=== PATIENT | female | born 1980 | race Caucasian/White ===

== ENCOUNTER 2017-12-09 13:29 | Emergency (ER) | payer BC, OTHER ==
[2017-12-09 14:22] VITALS: BP 130/57
[2017-12-09] MEDS ORDERED: Ibuprofen TAB* 600 MG PO ONE (14:23)
--- NOTE | 2017-12-09 16:07 | UC ---
FLU HPI - HPI Summary HPI Summary: 2 dAYS OF COUGH, BODY ACHES, FEVERS, FATIGUE - History of Current Complaint Chief Complaint: UCRespiratory Stated Complaint: CHEST CONGESTION, COUGH Time Seen by Provider: 12/09/17 16:02 Hx Obtained From: Patient Hx Last Menstrual Period: Mid Nov 2017 ?: No Onset/Duration: Sudden Onset, Lasting Days - 2, Still Present Severity Currently: Moderate Severity Initially: Moderate Pain Intensity: 10 Associated Signs & Symptoms: Positive: Fever, Myalgia, Cough, Sore Throat, Nasal Congestion, Headache Related Hx: Possible Flu/Infectious Exposure - Allergy/Home Medications Allergies/Adverse Reactions: Allergies Allergy/AdvReac Type Severity Reaction Status Date / Time No Known Allergies Allergy Verified 12/09/17 14:11 Home Medications: Home Medications Montelukast Sodium TAB* [Singulair 10 MG TAB*] 10 mg PO DAILY 12/09/17 [History Confirmed 12/09/17] Sertraline* [Zoloft*] 200 mg PO BEDTIME 12/09/17 [History Confirmed 12/09/17] buPROPion SR TAB* [Wellbutrin SR TAB*] 150 mg QAM 12/09/17 [History Confirmed ] celeCOXIB CAP* [Celebrex CAP*] 200 mg BEDTIME 12/09/17 [History Confirmed ] traZODone TAB* [Desyrel TAB*] 100 mg BEDTIME 12/09/17 [History Confirmed ] PMH/Surg Hx/FS Hx/Imm Hx Previously Healthy: No Psychological History: Depression - Surgical History Surgical History: Yes Surgery Procedure, Year, and Place: d&c, C-sectionx3 b/l ear surgery - Social History 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 [employer] Lives: With Family Alcohol Use: None Substance Use Type: None Smoking Status (MU): Never Smoked Tobacco Review of Systems Constitutional: Fever, Chills, Fatigue Skin: Negative Eyes: Negative ENT: Sore Throat, Ear Ache, Nasal Discharge Respiratory: Cough Cardiovascular: Negative Gastrointestinal: Negative Genitourinary: Negative Motor: Negative Neurovascular: Negative Musculoskeletal: Arthralgia, Myalgia Neurological: Headache Psychological: Negative Is Patient Immunocompromised?: No All Other Systems Reviewed And Are Negative: Yes Physical Exam Triage Information Reviewed: Yes Appearance: Ill-Appearing - mild, Pain Distress - mild, Obese Vital Signs: Initial Vital Signs Temp 100.4 F 12/09/17 14:13 Pulse 71 12/09/17 14:13 Resp 25 12/09/17 14:13 BP 130/57 12/09/17 14:13 Pulse Ox 100 12/09/17 14:13 Vital Signs Reviewed: Yes Eye Exam: Normal Eyes: Positive: Conjunctiva Clear ENT Exam: Normal ENT: Positive: Normal ENT inspection, Hearing grossly normal, Pharynx normal, TMs normal, Uvula midline. Negative: Nasal congestion, Tonsillar swelling, Tonsillar exudate, Trismus, Muffled voice, Hoarse voice, Dental tenderness, Sinus tenderness Dental Exam: Normal Neck exam: Normal Neck: Positive: Supple, Nontender, No Lymphadenopathy Respiratory Exam: Normal Respiratory: Positive: Chest non-tender, Lungs clear, Normal breath sounds, No respiratory distress, No accessory muscle use Cardiovascular Exam: Normal Cardiovascular: Positive: RRR, No Murmur, Pulses Normal, Brisk Capillary Refill Musculoskeletal Exam: Normal Musculoskeletal: Positive: Strength Intact, ROM Intact, No Edema Neurological Exam: Normal Neurological: Positive: Alert, Muscle Tone Normal Psychological Exam: Normal Skin Exam: Normal Diagnostics - Laboratory Diagnostic Studies Completed/Ordered: Influenza A(+) Flu Course/Dx - Course Course Of Treatment: Rest increase fluids, tyelnol, ibuprofen, increase fluids, tamiflu follow with pcp - Differential Dx/Diagnosis Provider Diagnoses: Influenza A Discharge - Discharge Plan Condition: Stable Disposition: HOME Prescriptions: Oseltamivir CAP* [Tamiflu CAP*] 75 mg PO BID #10 cap Patient Education Materials: Influenza (ED) Forms: *Work Release Referrals: Melina Walter MD [Primary Care Provider] - If Needed
== END 2017-12-09 16:39 | disposition home or self-care (01) ==
LOC: UCCORT 13:29
DX: J09.X2 Influenza due to identified novel influenza A virus with other respiratory manifestations (principal); F32.9 Major depressive disorder, single episode, unspecified
CPT/HCPCS: 87502; 99202; A9270-GY; G0463